=== PATIENT | female | born 1955 ===

== ENCOUNTER 2024-07-08 08:47 | Day surgery (SDC) | payer BC, MEDICARE ==
[~2024-07-08 08:47] MED LIST: Sodium Chloride 0.9% 10 ML Syringe FLUSH PRN; Sodium Chloride 0.9% 2.5 ML Syringe FLUSH PRN; Sodium Chloride 0.9% 20 ML SDV IV PRN
[2024-07-08] MEDS: Lactated Ringers 1,000 ML IV SCH (09:40)
[2024-07-08] MEDS ORDERED: propofoL 50 ML ONE (10:29)
[2024-07-08] MEDS ORDERED: Water For Injection, Sterile 20 ML ONE (10:30)
[2024-07-08] MEDS ORDERED: dexmedeTOMIDine HCl 200 MCG/2 ML SDV ONE (10:30)
== END 2024-07-08 11:57 | disposition home or self-care (01) ==
LOC: MW.SDS 08:47
PROVIDERS: ATTEND Surgery
DX: Z12.11 Encounter for screening for malignant neoplasm of colon (principal); K29.50 Unspecified chronic gastritis without bleeding; K29.80 Duodenitis without bleeding; K31.7 Polyp of stomach and duodenum; K22.2 Esophageal obstruction; K57.30 Diverticulosis of large intestine without perforation or abscess without bleeding; K44.9 Diaphragmatic hernia without obstruction or gangrene; K21.9 Gastro-esophageal reflux disease without esophagitis; I10 Essential (primary) hypertension; E78.5 Hyperlipidemia, unspecified; Z79.899 Other long term (current) drug therapy; Z88.2 Allergy status to sulfonamides
CPT/HCPCS: 43239; 45380; 88305; J2704; J7120; 00813; J3490